=== PATIENT | male | born 1985 | race Caucasian/White ===

== ENCOUNTER 2024-12-03 11:57 | Emergency (ER) | payer SELFPAY ==
[2024-12-03] VITALS (8 sets, daily range): BP systolic 130–164; BP diastolic 91–125; PULSE 78–138; RESP 15–20; TEMP 36.8; O2SAT 95–99
--- NOTE | ~2024-12-03 | XR_ITS ---
XR chest 1V Ordering provider: Gregory Muir History: 39 years Male with . dizziness . Comparison: None. FINDINGS: MEDIASTINUM: The cardiac silhouette is not enlarged. LUNGS: No infiltrates, effusions or pneumothorax. OTHER: No free air under the diaphragm. IMPRESSION: No acute cardiopulmonary pathology. Reviewed, dictated and finalized at location A.
--- NOTE | ~2024-12-03 | CT_ITS ---
CT brain wo con Ordering provider: Gregory Muir MD History: 39 years Male with . dizziness, N/V, VERTIGO . Comparison: None. Technique: CT of the head without contrast. Radiation reduction technique utilized.The dose-length pr oduct was 605.33 mGy-cm. FINDINGS: BRAIN PARENCHYMA AND CSF SPACES: No midline shift, mass effect or hemorrhage. The brain parenchyma a nd CSF spaces are otherwise normal. VISUALIZED PARANASAL SINUSES: Well aerated. MASTOIDS: Well aerated. BONES: The bones appear intact. SOFT TISSUES: Visualized nasopharynx is normal. Superficial soft tissues are normal. IMPRESSION: No acute intracranial findings. Reviewed, dictated and finalized at location A.
--- NOTE | ~2024-12-03 | CT_ITS ---
EXAMINATION: CTA BRAIN/CAROTID DATE: 12/03/2024 14:41 INDICATION: Pop with dizziness, nausea and vomiting. TECHNIQUE: Computed tomographic angiography (CTA) of the head and neck was performed with 100 mL Omni paque-350 intravenous contrast. Multiplanar reconstructions and maximum intensity projection 3D-recon structions of the carotid arteries and of the intracranial arteries were created by the technologist on a separate workstation. Automated exposure control and iterative reconstruction technique were emp loyed.The dose-length product was 1072.30 mGy-cm. COMPARISON: None. FINDINGS: Carotid arteries: Visualized portion of the aortic arch is normal in caliber with no dissection. Minimal amount of nonh emodynamically significant atherosclerotic plaque at the origins of the left common carotid and left vertebral arteries. Bilateral vertebral arteries are codominant with no dissection. There is small am ount of atherosclerotic plaque with 0% stenosis of the right carotid bulb relative to normal distal a rtery lumen diameter (NASCET criteria). There is moderate plaque with 0% stenosis of the left carotid bulb relative to normal distal artery lumen diameter. Cervical soft tissues are unremarkable. Mild e mphysema in the visualized upper lungs. Mild upper thoracic levocurvature. Intracranial arteries Vertebral arteries are codominant. There is no hemodynamically significant stenosis in the vertebral, basilar and internal carotid arteries. Both A1 and P1 segments are patent. The right P1 segment is r elatively small with collateral flow supplied from the right internal carotid artery via a similar ca liber right posterior communicating artery. There is also a tiny patent anterior communicating artery . There are no aneurysms identified. Cerebral arterial arborization appears symmetric. No abnormally enhancing brain lesions. IMPRESSION: 1. Small amount of atherosclerotic plaque with 0% stenosis of the right carotid bulb relative to norm al distal artery lumen diameter (NASCET criteria). 2. No atherosclerotic plaque with 0% stenosis of the left carotid bulb relative to normal distal armando ry lumen diameter. 3. Bilateral vertebral arteries are codominant with minimal nonhemodynamically significant atheroscle rotic plaque at the origin of the left vertebral artery. No vertebral artery dissection. Reviewed, dictated and finalized at location A. IMPRESSION: 1. Small amount of atherosclerotic plaque with 0% stenosis of the right carotid bulb relative to normal distal artery lumen diameter (NASCET criteria). 2. No atherosclerotic plaque with 0% stenosis of the left carotid bulb relative to normal distal artery lumen diameter. 3. Bilateral vertebral arteries are codominant with minimal nonhemodynamically significant atherosclerotic plaque at the origin of the left vertebral artery. No vertebral artery dissection.
--- NOTE | 2024-12-03 13:20 | ECG_ITS ---
Test Date: 2024-12-03 14:00:22 Measurements Intervals [place] Rate: 70 P: 73 RI: 170 QRS: 78 QRSD: 98 T: 72 QT: 366 QTc: 395 Interpretive Statements SINUS RHYTHM WITH SINUS ARRHYTHMIA BASELINE ARTIFACT- I, II, III, AVR, AVL, AVF, V1-V6 NORMAL ECG No previous ECG available for comparison Electronically Signed On 12-03-2024 14:15:32 CDT by Javier Saldivar D.O.
[2024-12-03 14:01] LABS: Basophils Percent Auto 0.1 % (0.2-1.2); Hematocrit 46.2 % (42.0-52.0); Hemoglobin 15.6 g/dL (14.0-18.0); Immature Granulocyte Absolute 0.02 K/mm3 (0.00-0.031); Immature Granulocyte Percent A 0.2 % (0-0.5); Lymphocytes Absolute Auto 1.06 K/mm3 (0.9-3.2); Mean Corpuscular HGB Conc 33.8 g/dl (32-36); Mean Corpuscular Hemoglobin 34.1 pg (26-34); Mean Corpuscular Volume 100.9 fl (80-100); Monocytes Absolute Auto 1.1 K/mm3 (0.1-0.6); Monocytes Percent Auto 10.1 % (2.6-8.5); Neutrophils Absolute Auto 8.5 K/mm3 (1.3-6.7); Neutrophils Percent Auto 79.6 % (45.5-73.1); Platelet Count Result 213 k/mm3 (150-375); Red Blood Count 4.58 M/mm3 (4.6-6.20); Red Cell Distribution Width 12.9 % (11.5-14.5); White Blood Count 10.6 K/mm3 (4.5-10.0)
[2024-12-03 14:13] LABS: Alanine Aminotransferase 35 U/L (6-50); Albumin Level 5.3 g/dL (3.5-5.1); Alkaline Phosphatase 75 U/L (38-126); Anion Gap 16 mmol/L (4-12); Aspartate Amino Transferase 45 U/L (17-59); Blood Urea Nitrogen 14 mg/dL (9-20); Calcium 10.3 mg/dL (8.4-10.2); Carbon Dioxide 27 mmol/L (22-30); Chloride 92 mmol/L (98-107); Estimated CRCL calculation 111 ml/min; Estimated Glomerular Filt Rate > 60; Glucose 100 mg/dL (65-110); Potassium 3.3 mmol/L (3.4-5.0); Sodium 135 mmol/L (137-145); Total Protein 9.3 g/dL (6.3-8.2)
--- NOTE | 2024-12-03 14:19 | ED.DIZZY ---
HPI - Dizziness General Chief Complaint: Dizziness Stated Complaint: I think I had a mild stroke last night Time Seen by Provider: 12/03/24 13:46 Source: patient Mode of arrival: ambulatory Limitations: no limitations History of Present Illness HPI Narrative: Patient states that he thinks he had a stroke. Yesterday he was on exercise bike around 1400 and felt/heard a pop that seemed to be coming from internally/in his head. He initially experienced intense nausea vomiting and vertigo. It felt like everything was spinning, the room and him. His gait was altered and had to hold onto things to walk around, with dysequilibrium. There was possibly head position change at the same time. He did not want to go to [place] and didn't otherwise have a ride so waited until today. Symptoms lasted 15 hours and then resolved. States that there were no vision changes in particular no blurred vision double vision or curtain like defect. No fall or blunt trauma. Denies any ear pain, tinnitus, hearing changes. No slurred speech. No facial drooping. No dysphonia. No unilateral symptoms. This has never happened before. No History diabetes. Related Data Allergies Allergy/AdvReac Type Severity Reaction Status Date / Time No Known Allergies Allergy Unverified 11/29/16 23:21 [facility] Family History Family History Sibling Prolonged QT syndrome Sibling Prolonged QT syndrome Exam Narrative: GENERAL: Well-appearing, well-nourished, and in no acute distress. HEAD: Normocephalic, atraumatic. EYES: Non injected, non icteric. Horizontal on vertical extraocular movements intact without nystagmus. PERRL, 4mm bilaterally. ENT: Nares clear, no rhinorrhea or epistaxis. Gross auditory acuity intact. External auditory canals normal. Bilateral tympanic membranes visualized and normal without effusion bulging vesicles erythema etc.. NECK: Supple. No meningismus. CHEST: Speaking in full sentences. No respiratory distress. HEART: Regular rate and rhythm. . ABDOMEN: Soft, nondistended. No rigidity or guarding. Not peritoneal EXTREMITIES: Normal range of motion. No lower extremity edema. SKIN: Warm, dry, no rash. NEURO: No focal deficits. Alert and oriented. Answering questions. Following commands. Normal speech without aphasia or dysarthria. No ataxia on [id number] or [id number] bilaterally. Sensation intact throughout. PSYCH: Normal mood and affect. Course Vital Signs Vital signs: Vital Signs Temperature 98.2 F 12/03/24 12:08 Pulse Rate 89 12/03/24 12:08 Respiratory Rate 15 12/03/24 12:08 Blood Pressure 164/105 H 12/03/24 12:08 Pulse Oximetry 99 12/03/24 12:08 Oxygen Delivery Room Air 12/03/24 12:08 Temperature 98.2 F 12/03/24 12:08 Pulse Rate 138 H 12/03/24 16:10 Respiratory Rate 20 12/03/24 15:02 Blood Pressure 143/91 H 12/03/24 17:52 Pulse Oximetry 97 12/03/24 15:02 Oxygen Delivery Room Air 12/03/24 12:08 MDM - Dizziness MDM Narrative Medical decision making narrative: Patient presents with report of vertigo associated with nausea that started acutely yesterday and lasted 15 hours but then subsided. He is concerned he had a stroke. In the emergency department he is afebrile with vital signs notable for hypertension. DIFFERENTIAL DIAGNOSIS VERTIGO Central causes: infection ( encephalitis, meningitis, cerebritis); vertebrobasilar arterial insufficiency, subclavian steal syndrome, cerebellar or brainstem hemorrhage or infarction, vertebrobasilar migraine, trauma ( temporal bone fracture, post concussive syndrome); tumor (brainstem or cerebellum); MS; temporal lobe epilepsy Peripheral causes: Foreign body, cerumen impaction, acute otitis media, labyrinthitis, benign paroxysmal positional vertigo, Meniere's disease, vestibular neuronitis, perilymphatic fistula, trauma, motion sickness, acoustic neuroma, ototoxic medications Although possibly a TIA, ABCD2 Risk Score Age greater than or equal to 60: [Yes = 1, No = 0]: 0 Initial SBP greater than or equal to 140 or greater than or equal to DBP ?90 [Yes = 1, No = 0]: 1 Clinical features of TIA: [ Unilateral weakness +2, Speech impairment without weakness +1, other symptoms = 0]: 0 Duration of symptoms: [Less than 10 minutes = 0, 10-59 min = 1, greater than or equal to 60 min = 2 ]: 2 Hx of Diabetes [Yes = 1, No = 0]: 0 Total Score : 3 Per the validation study, 0-3 points low risk confers a 2-day stroke risk of 1.0% and a 7-day stroke risk of 1.2% and a 90-day stroke risk of 3.1%. Mild hypokalemia. Calcium corrects to normal (9.3) per albumin. Very mild leukocytosis. Patient has significant rise in HR upon orthostat testing. 2L IV fluids ordered. CPK elevated, but not to a degree to suggest rhabdo. 2+ ketonuria. This even further supports a degree of dehydration. Marijuana on UDS. Patient reassessed after he has received 2 L of IV fluids. He reports continuing to feel okay. We discussed his workup thus far and the uncertainty of the exact etiology of his symptoms although that strong consideration was given for orthostatic etiology for which dehydration likely suspected especially given his labs. He verifies understanding. We discussed that is important to maintain hydration especially with exercising with the heat. He does note that he is Concerned for prolonged QT given family history (both sisters); we reviewed his EKG and I did educate on what this means and that his is normal. Denies needing a work note. Otherwise stable for discharge. He denies having a primary care physician we discussed that this is important. Provided referral for 1. Differential Diagnosis Differential diagnosis: Likely other (carotid/vertebral artery dissection;) Lab Data Attestation: I reviewed the patient's lab results. 12/03/24 13:55 12/03/24 13:55 Labs: Lab Results 12/03/24 12/03/24 Range/Units 13:55 17:06 WBC 10.6 H (4.5-10.0) K/mm3 RBC 4.58 L (4.6-6.20) M/mm3 Hgb 15.6 (14.0-18.0) g/dL Hct 46.2 (42.0-52.0) % MCV 100.9 H (80-100) fl MCH 34.1 H (26-34) pg MCHC 33.8 (32-36) g/dl RDW 12.9 (11.5-14.5) % Plt Count 213 (150-375) k/mm3 MPV 10.0 (7.4-10.4) fl Immature Gran % (Auto) 0.2 (0-0.5) % Neut % (Auto) 79.6 H (45.5-73.1) % Lymph % (Auto) 10.0 L (18.3-44.2) % [place] % (Auto) 10.1 H (2.6-8.5) % Eos % (Auto) 0.0 (0-4.4) % Baso % (Auto) 0.1 L (0.2-1.2) % Lymph # (Auto) 1.06 (0.9-3.2) K/mm3 [place] # (Auto) 1.1 H (0.1-0.6) K/mm3 Eos # (Auto) 0.0 (0-0.3) K/mm3 Baso # (Auto) 0.0 (0.0-0.1) K/mm3 Abs Immat Gran (auto) 0.02 (0.00-0.031) K/mm3 Absolute Neuts (auto) 8.5 H (1.3-6.7) K/mm3 Absolute Nucleated RBC 0.000 (0.0-0.012) K/mm3 Nucleated RBC % 0.0 (0.0-0.2) % PT 11.8 (11.1-14.7) Seconds INR 0.9 APTT 22.5 (22.3-36.8) Seconds Sodium 135 L (137-145) mmol/L Potassium 3.3 L (3.4-5.0) mmol/L Chloride 92 L (98-107) mmol/L Carbon Dioxide 27 (22-30) mmol/L Anion Gap 16 H (4-12) mmol/L BUN 14 (9-20) mg/dL Creatinine 0.90 (0.7-1.3) mg/dL Estim Creat Clear Calc 111 ml/min Estimated GFR > 60 (59 - ) Glucose 100 (65-110) mg/dL Calcium 10.3 H (8.4-10.2) mg/dL Magnesium 1.9 (1.6-2.3) mg/dL Total Bilirubin 1.0 (0.2-1.3) mg/dL AST 45 (17-59) U/L ALT 35 (6-50) U/L Alkaline Phosphatase 75 (38-126) U/L Total Creatine Kinase 344 H (55-170) U/L Troponin I < 0.012 (0.000-0.034) ng/mL Total Protein 9.3 H (6.3-8.2) g/dL Albumin 5.3 H (3.5-5.1) g/dL Urine Color Yellow (Yellow) Urine Appearance Clear (Clear) Urine pH 8.0 (5.0-9.0) Ur Specific [place] > 1.045 H (1.001-1.035) Urine Protein 1+ H (Negative) mg/dL Urine Glucose (UA) Negative (Negative) mg/dL Urine Ketones 2+ H (Negative) mg/dL Ur Blood (Man) Negative (Negative) Urine Nitrate Negative (Negative) Urine Bilirubin Negative (Negative) Urine Urobilinogen 1.0 (<2.0) mg/dL Add Ur Microanalysis Reviewed Leukocyte Esterase Rfl Negative (Negative) KELSEY/UL Urine RBC 0-2 (0-2) /hpf Urine WBC 0-5 (0-3) /hpf Ur Squamous Epith Cells None seen (Few) /hpf Urine Bacteria None seen /hpf Urine Casts 0-2 Urine Opiates Screen Negative (Negative) Urine Methadone Screen Negative (Negative) Ur Barbiturates Screen Negative (Negative) Ur Phencyclidine Scrn Negative (Negative) Ur Amphetamine Screen Negative (Negative) U Benzodiazepines Scrn Negative (Negative) Urine Cocaine Screen Negative (Negative) U Cannabinoids Screen Positive A (Negative) Imaging Data Radiologist's impression: Impressions Head CT 12/03/24 13:47 IMPRESSION: No acute intracranial findings. Chest X-Ray 12/03/24 14:01 IMPRESSION: No acute cardiopulmonary pathology. Head/Neck CTA 12/03/24 15:17 IMPRESSION: 1. Small amount of atherosclerotic plaque with 0% stenosis of the right carotid bulb relative to normal distal artery lumen diameter (NASCET criteria). 2. No atherosclerotic plaque with 0% stenosis of the left carotid bulb relative to normal distal artery lumen diameter. 3. Bilateral vertebral arteries are codominant with minimal nonhemodynamically significant atherosclerotic plaque at the origin of the left vertebral artery. No vertebral artery dissection. ECG Data EKG #1: Attestation: I personally reviewed and interpreted this ECG as follows: ECG completion date: 12/03/24 ECG completion time: 14:00 Interpretation: Normal sinus rhythm at a rate of 70 beats minute. There is some R to R variation consistent with sinus arrhythmia, likely due to respiratory variation. MO interval 170. QRS 98. QT/QTC 366/386. Good R-wave progression across the precordial leads. No T-wave inversion. Normal axis. Discharge Plan Discharge Clinical Impression: Vertigo, Hypokalemia, Elevated CPK, Marijuana use, Orthostatic dizziness Patient Disposition: Home Condition: Stable Instructions: Antibiotic Form, Vertigo (DC), Hypokalemia (ED) Additional Instructions: As we discussed, the exact etiology of your symptoms is unclear. Your CT scans were relatively normal. I recommend you follow-up with a primary care physician. Because you do not have 1 the name of the doctors listed below. I suspect a large component of dehydration given your vital sign response to position changes. YOu received 2L of fluid. You had mildly low potassium but we gave you oral supplementation. Do not hesitate to return to the emergency department with any new, worsening, or recurring symptoms. It is very important you maintain your hydration by drinking plenty of fluids, especially when it is hot or when exercising. Patient Language: Romanian Follow-up/Referrals: Jay Flores MD [Physician] - PHYSICIAN,PREANALYTICS TEAM LEAD [Non-Staff] - Time of Disposition: 17:45
[2024-12-03 14:24] LABS: INR 0.9; Prothrombin Time 11.8 Seconds (11.1-14.7); Troponin I < 0.012 ng/mL (0.000-0.034)
[2024-12-03 14:25] LABS: Partial Thromboplastin Time 22.5 Seconds (22.3-36.8)
[2024-12-03 15:06] LABS: Magnesium 1.9 mg/dL (1.6-2.3)
[2024-12-03] MEDS: SODIUM CHLORIDE 0.9% IV 1,000 ML 999 ML IV CONT ×2 (16:36)
[2024-12-03 16:52] LABS: Creatine Kinase 344 U/L (55-170)
[2024-12-03 17:24] LABS: Add Urine Microscopic? YES; Appearance Urine Clear (Clear); Bacteria Urine None Seen /hpf; Bilirubin Urine Negative (Negative); Blood Urine Negative (Negative); Color Urine Yellow (Yellow); Glucose Urine UA Negative (Negative); Ketones Urine 2+ mg/dL (Negative); Leukocyte Esterase Ur Negative LEU/UL (Negative); Need Manual Microscopic Reviewed; Nitrate Urine Negative (Negative); Non Pathogenic Casts 0-2; Protein Urine 1+ mg/dL (Negative); RBC Urine 0-2 /hpf (0-2); Specific Grav Ur > 1.045 (1.001-1.035); Squamous Epithelial Cell Urine None Seen /hpf (Few); WBC Urine 0-5 /hpf (0-3)
[2024-12-03 17:30] LABS: Amphetamine Screen Urine Negative (Negative); Barbiturate Screen Urine Negative (Negative); Benzodiazepines Screen Urine Negative (Negative); Cannabinoid Screen Urine Positive (Negative); Cocaine Screen Urine Negative (Negative); Methadone Screen Urine Negative (Negative); Opiate Screen Urine Negative (Negative); Phencyclidine Screen Urine Negative (Negative)
== END 2024-12-03 17:52 | disposition home or self-care (01) ==
PROVIDERS: Emergency Medicine; Emergency Provider Student in an Organized Health Care Education/Training Program
DX: R42 Dizziness and giddiness (principal); E87.6 Hypokalemia; R74.8 Abnormal levels of other serum enzymes; F12.90 Cannabis use, unspecified, uncomplicated
CPT/HCPCS: 36415; 70450; 70496; 70498; 71045; 80053; 80307; 81001; 82550; 83735; 84484; 85025; 85610; 85730; 93005; 96360; 99284; J7030; Q9967

== ENCOUNTER 2024-12-06 13:13 | Emergency (ER) | payer SELFPAY ==
[2024-12-06 13:22] VITALS: BP 144/108; PULSE 77; RESP 17; TEMP 36.8; O2SAT 98
--- NOTE | 2024-12-06 13:37 | ECG_ITS ---
Test Date: 2024-12-06 13:50:47 Measurements Intervals [place] Rate: 71 P: 62 W[place]: 187 QRS: 71 QRSD: 89 T: 65 QT: 365 QTc: 399 Interpretive Statements SINUS RHYTHM BASELINE ARTIFACT= I, II, III, AVR, AVL, AVF NORMAL ECG Compared to ECG 12/03/2024 14:00:22 Sinus arrhythmia no longer present Electronically Signed On 12-06-2024 13:52:28 CDT by Javier Saldivar D.O.
[2024-12-06 14:12] LABS: Basophils Percent Auto 0.3 % (0.2-1.2); Eosinophils Percent Auto 0.7 % (0-4.4); Hematocrit 39.2 % (42.0-52.0); Hemoglobin 12.9 g/dL (14.0-18.0); Immature Granulocyte Absolute 0.01 K/mm3 (0.00-0.031); Immature Granulocyte Percent A 0.2 % (0-0.5); Lymphocytes Percent Auto 21.6 % (18.3-44.2); Mean Corpuscular HGB Conc 32.9 g/dl (32-36); Mean Corpuscular Hemoglobin 34.1 pg (26-34); Mean Corpuscular Volume 103.7 fl (80-100); Mean Platelet Volume 10.4 fl (7.4-10.4); Monocytes Absolute Auto 0.6 K/mm3 (0.1-0.6); Monocytes Percent Auto 10.1 % (2.6-8.5); Neutrophils Percent Auto 67.1 % (45.5-73.1); Platelet Count Result 143 k/mm3 (150-375); Red Blood Count 3.78 M/mm3 (4.6-6.20); Red Cell Distribution Width 13.2 % (11.5-14.5)
--- NOTE | 2024-12-06 14:15 | ED_ITS ---
HPI - General Adult General Chief complaint: Unspecified Stated complaint: voice change, numb lips Time Seen by Provider: 12/06/24 13:35 History of Present Illness HPI narrative: 39-year-old male presenting to the emergency department for re-evaluation. He was just evaluated the hospital 3 days ago and discharged home after unremarkable workup with extensive imaging including CT of the head CT angiography of the head neck with laboratory assessments. He was discharged home with instructions for vertiginous symptoms and hypokalemia. He initially came in with persistent vertiginous complaints with nausea vomiting which have since resolved. He states that he came in today as he was having some tingling around his lips and mouth. Symptoms isolated around both was lip stopping bottom without any other signs or symptoms of paresthesias in the hands fingers or other facial structures. Also states he has had some hoarseness to his voice. Endorses drinking lots of water and Gatorade over last few days. Does not have a PCP that he can follow-up with so he came to the emergency department. Related Data Allergies Allergy/AdvReac Type Severity Reaction Status Date / Time No Known Allergies Allergy Unverified 11/29/16 23:21 Review of Systems 2 Review of Systems: As reviewed above in HPI [facility] Family History Family History Sibling Prolonged QT syndrome Sibling Prolonged QT syndrome Exam 2 Narrative: GENERAL: [Well-appearing, well-nourished, and in no acute distress.] HEAD: [Normocephalic, atraumatic.] EYES: [PERRLA and EOMI.] ENT: Nares clear, no rhinorrhea or epistaxis. Mucous membranes moist. NECK: Supple. CHEST: [Clear to auscultation. No respiratory distress.] HEART: [Regular rate and rhythm]. No murmur heard. [Normal peripheral pulses.] ABDOMEN: [Soft, nondistended], [nontender], [No rigidity or guarding] EXTREMITIES: Normal range of motion. [No edema.] SKIN: Warm, dry, no rash. NEURO: [No focal deficits]. Alert and oriented [x3.] PSYCH: [Normal mood and affect.] Course Vital Signs Vital signs: Vital Signs Temperature 36.8 C 12/06/24 13:22 Pulse Rate 77 12/06/24 13:22 Respiratory Rate 17 06/29/25 13:22 Blood Pressure 144/108 H 12/06/24 13:22 Pulse Oximetry 98 12/06/24 13:22 Oxygen Delivery Room Air 12/06/24 13:22 Temperature 36.8 C 12/06/24 13:22 Pulse Rate 74 12/06/24 16:17 Respiratory Rate 19 12/06/24 16:17 Blood Pressure 138/86 12/06/24 16:17 Pulse Oximetry 100 12/06/24 16:17 Oxygen Delivery Room Air 12/06/24 13:22 Medical Decision Making MDM Narrative Medical decision making narrative: 39-year-old male presenting to the emergency department for re-evaluation after recent ER visit. Patient was seen several days ago after he had a acute onset headache with vertiginous symptoms. He had extensive workup done with CT of the head CT angiography of the head neck which were largely unremarkable. He had some mild hypokalemia and signs of dehydration that responded well to fluid resuscitation. He was discharged home with primary care provider follow-up he does not have a PCP. He was told that if he started getting any symptoms such as voice changing or paresthesias in his lips that he should come back to the hospital. He started experiencing some paresthesias in his lip so he came to the ER. No signs of electrolyte derangements or hypokalemia on his EKG. Negative [place] sign bilaterally. No neurological deficits on examination. No signs of posterior or pharyngeal erythema or exudates. Possible small component of laryngitis as he does have some hoarseness to his voice. Laboratory studies including CBC, CMP, magnesium, EKG and a TSH obtained. Workup shows no leukocytosis. Hemoglobin of 12.9 which is lower than his level several days ago but all his cell lines of lower likely from the hemoconcentration he had previously from dehydration and now that they are corrected they might be in his normal range. Will have to follow up about this on outpatient basis. No evidence of any bleeding. Electrolytes show a hypokalemia of 3.2 which is lower than it was several days ago. Normal electrolytes. Magnesium 1.9. He was given oral magnesium and potassium supplementation. His LFTs are normal. TSH is normal. EKG shows normal sinus rhythm without any significant ectopy. Patient was given electrolyte replacement here in the emergency department and can be safely discharged home at this time with instructions to follow-up on outpatient basis with a primary care provider and will be sent home with some supplemental potassium for the next several days until he can establish with a PCP for repeat follow-up and labs outpatient. Medical Records Medical records reviewed: Yes I reviewed the external patient's medical records. Vital Signs Vital Signs: Vital Signs Temperature 36.8 C 12/06/24 13:22 Pulse Rate 77 12/06/24 13:22 Respiratory Rate 17 12/06/24 13:22 Blood Pressure 144/108 H 12/06/24 13:22 Pulse Oximetry 98 12/06/24 13:22 Oxygen Delivery Room Air 12/06/24 13:22 Temperature 36.8 C 12/06/24 13:22 Pulse Rate 74 12/06/24 16:17 Respiratory Rate 19 12/06/24 16:17 Blood Pressure 138/86 12/06/24 16:17 Pulse Oximetry 100 12/06/24 16:17 Oxygen Delivery Room Air 12/06/24 13:22 Lab Data Lab results reviewed: Yes I reviewed the patient's lab results. 12/06/24 14:03 12/06/24 14:03 Labs: Lab Results 12/06/24 12/06/24 Range/Units 14:03 14:07 WBC 6.0 (4.5-10.0) K/mm3 RBC 3.78 L (4.6-6.20) M/mm3 Hgb 12.9 L (14.0-18.0) g/dL Hct 39.2 L (42.0-52.0) % MCV 103.7 H (80-100) fl MCH 34.1 H (26-34) pg MCHC 32.9 (32-36) g/dl RDW 13.2 (11.5-14.5) % Plt Count 143 L (150-375) k/mm3 MPV 10.4 (7.4-10.4) fl Immature Gran % (Auto) 0.2 (0-0.5) % Neut % (Auto) 67.1 (45.5-73.1) % Lymph % (Auto) 21.6 (18.3-44.2) % [place] % (Auto) 10.1 H (2.6-8.5) % Eos % (Auto) 0.7 (0-4.4) % Baso % (Auto) 0.3 (0.2-1.2) % Lymph # (Auto) 1.30 (0.9-3.2) K/mm3 [place] # (Auto) 0.6 (0.1-0.6) K/mm3 Eos # (Auto) 0.0 (0-0.3) K/mm3 Baso # (Auto) 0.0 (0.0-0.1) K/mm3 Abs Immat Gran (auto) 0.01 (0.00-0.031) K/mm3 Absolute Neuts (auto) 4.0 (1.3-6.7) K/mm3 Absolute Nucleated RBC 0.000 (0.0-0.012) K/mm3 Nucleated RBC % 0.0 (0.0-0.2) % Sodium 136 L (137-145) mmol/L Potassium 3.2 L (3.4-5.0) mmol/L Chloride 101 (98-107) mmol/L Carbon Dioxide 28 (22-30) mmol/L Anion Gap 7 (4-12) mmol/L BUN 7 L D (9-20) mg/dL Creatinine 0.87 (0.7-1.3) mg/dL Estim Creat Clear Calc 115 ml/min Estimated GFR > 60 (59 - ) Glucose 103 (65-110) mg/dL Calcium 9.1 (8.4-10.2) mg/dL Magnesium 1.9 (1.6-2.3) mg/dL Total Bilirubin 0.4 (0.2-1.3) mg/dL AST 50 (17-59) U/L ALT 35 (6-50) U/L Alkaline Phosphatase 70 (38-126) U/L Total Protein 6.9 (6.3-8.2) g/dL Albumin 4.1 (3.5-5.1) g/dL TSH (Reflex) 2.650 (0.465-4.68) uIU/mL Discharge Plan Discharge Clinical Impression: Hypokalemia Patient Disposition: Home Condition: Stable Instructions: Antibiotic Form, Hypokalemia (ED) Additional Instructions: Your potassium was slightly lower today at 3.2 and this can explain your symptoms. No other significant derangements identified and we will send you home with potassium supplementing medications but you do need to establish with a primary care provider for follow-up on outpatient basis. Return with any emergent concerns. Patient Language: Korean Prescriptions: New potassium chloride 10 mEq packet 10 meq PO DAILY Qty: 30 0RF Follow-up/Referrals: Shai Salgado MD [Physician] - 1 Week (ER follow up) UNKNOWN,DOCTOR [Primary Care Provider] - Time of Disposition: 16:13
[2024-12-06 14:23] LABS: Alanine Aminotransferase 35 U/L (6-50); Albumin Level 4.1 g/dL (3.5-5.1); Alkaline Phosphatase 70 U/L (38-126); Anion Gap 7 mmol/L (4-12); Aspartate Amino Transferase 50 U/L (17-59); Bilirubin,Total 0.4 mg/dL (0.2-1.3); Blood Urea Nitrogen 7 mg/dL (9-20); Calcium 9.1 mg/dL (8.4-10.2); Carbon Dioxide 28 mmol/L (22-30); Chloride 101 mmol/L (98-107); Estimated CRCL calculation 115 ml/min; Estimated Glomerular Filt Rate > 60; Glucose 103 mg/dL (65-110); Magnesium 1.9 mg/dL (1.6-2.3); Potassium 3.2 mmol/L (3.4-5.0); Sodium 136 mmol/L (137-145); Total Protein 6.9 g/dL (6.3-8.2)
[2024-12-06 16:17] VITALS: BP 138/86; PULSE 74; RESP 19; O2SAT 100
== END 2024-12-06 16:18 | disposition home or self-care (01) ==
PROVIDERS: Emergency Provider Student in an Organized Health Care Education/Training Program
DX: E87.6 Hypokalemia (principal)
CPT/HCPCS: 36415; 80053; 83735; 84443; 85025; 93005; 99283